=== PATIENT | female | born 2000 | race Caucasian/White ===

== ENCOUNTER 2021-04-25 21:55 | Emergency (ER) | payer SELFPAY ==
[2021-04-25 22:23] VITALS: BP 101/59; PULSE 101
--- NOTE | 2021-04-25 22:26 | EDM.PDOC ---
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 No vaginal drainage, no pain. negative PMHx last US was 3 weeks ago and was ok. no N/V/D. eating and drinking ok - Related Data Allergies Allergy/AdvReac Type Severity Reaction Status Date / Time amoxicillin Allergy Swelling Verified 04/25/21 22:08 Home Meds: Home Meds Vits #93/Iron Fum/FA [ Formula Tablet] 1 tab PO DAILY 04/25/21 [History] ED ROS GENERAL - Review of Systems Review Of Systems: See Below Constitutional: Reports: No Symptoms HEENT: Reports: No Symptoms Respiratory: Reports: No Symptoms Cardiovascular: Reports: No Symptoms : Reports: No Symptoms Musculoskeletal: Reports: No Symptoms Skin: Reports: No Symptoms ED EXAM - Physical Exam Exam: See Below Exam Limited By: No Limitations General Appearance: Alert, WD/WN, No Apparent Distress Eye Exam: Bilateral Eye: EOMI Head: Atraumatic Respiratory/Chest: No Respiratory Distress, Lungs Clear Cardiovascular: Normal Peripheral Pulses, Regular Rate, Rhythm GI/Abdominal Exam: Soft, Non-Tender, Other ( abdomen ) Heart Tones: Present Movement: Active Neurological: Alert, Oriented, No Motor/Sensory Deficits ED Add Procedures - Additional/Other Procedure(s) Procedure(s) (Free Text): bedside US was performed 2 intra uterine fetuses were identified both with palpating hearts - and both were moving Course - Re-Assessments/Exams Free Text/Narrative Re-Assessment/Exam: 04/25/21 22:24 US abdomen was performed positive IU - 2 fetus - viable + heart contractions and movement mom was assured and she is happy with the result Departure - Departure Time of Disposition: 22:25 Disposition: Home, Self-Care 01 Condition: Good Clinical Impression: Third trimester - Discharge Information *PRESCRIPTION DRUG MONITORING PROGRAM REVIEWED*: Not Applicable *COPY OF PRESCRIPTION DRUG MONITORING REPORT IN PATIENT NURY: Not Applicable Instructions: Third Trimester of , [id number] Forms: ED Department Discharge Additional Instructions: - increase fluids intake - follow up with your PCP in 1-2 weeks as needed - resume home meds as before - Problem List & Annotations (1) Third trimester SNOMED Code(s): 45595554 Code(s): Z34.93 - ENCNTR FOR SUPRVSN OF NORMAL PREG, UNSP, THIRD TRIMESTER Status: Acute Priority: Low - Problem List Review Problem List Initiated/Reviewed/Updated: Yes - Assessment/Plan Plan: - increase fluids intake - follow up with your PCP in 1-2 weeks as needed - resume home meds as before
== END 2021-04-25 22:25 | disposition home or self-care (01) ==
LOC: LB.ED 21:55
DX: Z34.93 Encounter for supervision of normal pregnancy, unspecified, third trimester (principal); Z3A.24 24 weeks gestation of pregnancy; Z88.0 Allergy status to penicillin
CPT/HCPCS: 99284-25